=== PATIENT | male | born 1995 | race Caucasian/White ===

== ENCOUNTER 2016-05-01 09:06 | Emergency (ER) | payer MEDICAID ==
[2016-05-01] MEDS ORDERED: LIDOCAINE 1% INJ-PF (10 MG/ML) 30 ML SDV INFIL ONE (10:04)
[2016-05-01] MEDS ORDERED: AZITHROMYCIN 1 GM SUSP PACKET PO ONE (10:04)
[2016-05-01] MEDS ORDERED: CEFTRIAXONE INJ 250 MG VIAL IM ONE (10:04)
--- NOTE | 2016-05-01 10:07 | ER Document Report ---
ED GI/ - General Chief Complaint: STD Exposure Stated Complaint: STD EXPOSURE, TOE PAIN Notes: The patient is a 21-year-old male who presents after a exposure to chlamydia. His partner told him to come to the ER to be treated. He was using condoms. He is also having some discharge out of his right big toe. He is using Neosporin and soaking without much relief. Denies penile discharge, testicular pain, rash, lesions, fevers, nausea, vomiting or difficulty walking. TRAVEL OUTSIDE OF THE [place] IN LAST 30 DAYS: No - Related Data Allergies/Adverse Reactions: No Known Allergies Allergy (Unverified 05/01/16 09:13) Past Medical History - General Information source: Patient - Social History Smoking Status: Never Smoker Chew tobacco use (# tins/day): No Frequency of alcohol use: None Drug Abuse: None Family History: Reviewed & Not Pertinent Patient has suicidal ideation: No Patient has homicidal ideation: No Renal/ Medical History: Denies: Hx Peritoneal Dialysis Review of Systems - Review of Systems Notes: REVIEW OF SYSTEMS: CONSTITUTIONAL: -fevers, -chills EENT: -eye pain, -difficulty swallowing, -nasal congestion CARDIOVASCULAR:-chest pain, -syncope. RESPIRATORY: -cough, -SOB GASTROINTESTINAL: -abdominal pain, - nausea, -vomiting, -diarrhea GENITOURINARY: -dysuria, -hematuria MUSCULOSKELETAL: -back pain, -neck pain SKIN: +right big toenail drainage, -rash or skin lesions. HEMATOLOGIC: -easy bruising or bleeding. LYMPHATIC: -swollen, enlarged glands. NEUROLOGICAL: -altered mental status or loss of consciousness, -headache, - neurologic symptoms PSYCHIATRIC: -anxiety, -depression. ALL OTHER SYSTEMS REVIEWED AND NEGATIVE. Physical Exam - Vital signs Vitals: Temp 97.8, HR 68, BP 152/72, RR 14, 99% on RA - Notes Notes: PHYSICAL EXAMINATION: GENERAL: Well-appearing, well-nourished and in no acute distress. HEAD: Atraumatic, normocephalic. EYES: Pupils equal round and reactive to light, extraocular movements intact, sclera anicteric, conjunctiva are normal. ENT: nares patent, oropharynx clear without exudates. Moist mucous membranes. NECK: Normal range of motion, supple without lymphadenopathy LUNGS: Breath sounds clear to auscultation bilaterally and equal. No wheezes rales or rhonchi. HEART: Regular rate and rhythm without murmurs ABDOMEN: Soft, nontender, normoactive bowel sounds. No guarding, no rebound. No masses appreciated. : Normal testicles and penis. No drainage. EXTREMITIES: Right big toe with small amount of drainage from nail. Normal range of motion, no pitting or edema. No cyanosis. NEUROLOGICAL: Cranial nerves grossly intact. Normal speech, normal gait. Normal sensory, motor, and reflex exams. PSYCH: Normal mood, normal affect. SKIN: Warm, Dry, normal turgor, no rashes or lesions noted. Course - Re-evaluation Re-evalutation: Will treat patient for gonorrhea and chlamydia after sending urine due to exposure. Instructed him to always use condoms. Also instructed patient to add on a antifungal for his toenails. Told him to follow-up with his primary care physician to have his blood pressure rechecked. Discharge - Discharge Clinical Impression: Exposure to STD, Toenail fungus Condition: Good Disposition: HOME, SELF-CARE Additional Instructions: You were treated today for gonorrhea and chlamydia. Always wear protection. Skin Fungus You have a fungal infection of the toes. This is sometimes called "ringworm" when it forms a ring. It's called "jock itch" when it occurs in the groin area. The infection results from exposure to another person or an animal carrying the fungus. The fungus prefers areas which are moist and warm. The infection is usually treated with antifungal cream. This is applied two or three times daily. Healing may take two or three weeks. Occasionally, oral medication is necessary, for example, when the infection involves the scalp or nails. Fingernail or toenail infections are very difficult to eradicate, often requiring many weeks of treatment. Return for re-examination if your symptoms change significantly -- for example, if you develop fever or chills, red streaks, increasing tenderness, swelling, or blisters at the infection site.
[2016-05-01 10:31] VITALS: BP 121/68
[2016-05-01 11:40] LABS: CHLAM PCR NOT DETECTED (NOT DETECT)
== END 2016-05-01 10:25 | disposition home or self-care (01) ==
LOC: ER 09:06
DX: Z20.2 Contact with and (suspected) exposure to infections with a predominantly sexual mode of transmission (principal); B35.1 Tinea unguium
CPT/HCPCS: 99283; 96372; 87491; 87591; J3490; Q0144; J0696

== ENCOUNTER 2017-01-05 11:38 | Emergency (ER) | payer BC, MEDICAID ==
[2017-01-05] MEDS ORDERED: PREDNISONE 20 MG TABLET PO ONE (12:32)
--- NOTE | 2017-01-05 12:34 | ER Document Report ---
HPI - HPI Patient complains to provider of: Skin rash Onset: Last week Onset/Duration: Intermittent, Gone Quality of pain: No pain Pain Level: 0 Context: Patient presents complaining of intermittent skin rash off and on for the past week. Patient states that he has had symptoms almost daily but that they only last for about 15 minutes. Patient states that symptoms often start after exposure to cold temperatures or water. Patient denies any new foods, medications or detergents. Patient denies any respiratory symptoms, facial swelling or difficulty breathing. Associated Symptoms: Other - Skin rash Exacerbated by: Denies Relieved by: Denies Similar symptoms previously: No Recently seen / treated by doctor: No - ROS ROS below otherwise negative: Yes Systems Reviewed and Negative: Yes All other systems reviewed and negative - CONSTITUTIONAL Constitutional: DENIES: Fever, Chills - EENT EENT: DENIES: Sore Throat - CARDIOVASCULAR Cardiovascular: DENIES: Chest pain - RESPIRATORY Respiratory: DENIES: Trouble Breathing, Coughing - GASTROINTESTINAL Gastrointestinal: DENIES: Nausea, Patient vomiting - DERM Skin Color: Normal Skin Problems: Rash Past Medical History - General Information source: Patient - Social History Smoking Status: Never Smoker Frequency of alcohol use: None Drug Abuse: None 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 IN LAST 30 DAYS: No - HEENT HEENT: Atraumatic, Normocephalic - NECK Neck: Normal Inspection, Supple. negative: Lymphadenopathy-Left, Lymphadenopathy-Right - RESPIRATORY Respiratory: Breath Sounds Normal, No Respiratory Distress, Chest Non-Tender O2 Sat by Pulse Oximetry: 97 - CARDIOVASCULAR Cardiovascular: Regular Rate, Regular Rhythm, No Murmur - BACK Back: Normal Inspection - MUSCULOSKELETAL/EXTREMETIES Musculoskeletal/Extremeties: KRISTIN CALLE - NEURO Level of Consciousness: Awake, Alert, Appropriate Motor/Sensory: No Motor Deficit - DERM Integumentary: Warm, Dry, Rash - Erythematous crusted lesion in the bilateral ankles consistent with patient's reported history of ant bites Course - Re-evaluation Re-evalutation: 01/05/17 12:42 The patient has been informed that they may have pre-hypertension or hypertension based on a blood pressure reading in the emergency department. I recommend that patient call the primary care provider listed on their discharge instructions or a physician of their choice by this week to arrange follow-up for further evaluation of possible pre-hypertension or hypertension. - Vital Signs Vital signs: Temp Pulse Resp BP Pulse Ox 98.6 F 63 18 155/76 H 97 01/05/17 11:44 01/05/17 11:44 01/05/17 11:44 01/05/17 11:44 01/05/17 11:44 Discharge - Discharge Clinical Impression: Elevated blood pressure reading, Urticaria Condition: Stable Disposition: HOME, SELF-CARE Instructions: Acute Urticaria ([facility]), Use of Diphenhydramine, Steroid Medication Additional Instructions: Return immediately for any new or worsening symptoms Followup with your primary care provider, call tomorrow to make a followup appointment Follow-up with an upholstery technician for any continued problems Prescriptions: Famotidine [Pepcid 20 mg Tablet] 20 mg PO BID #12 tablet Prednisone [Deltasone 20 mg Tablet] 3 tab PO DAILY 4 Days tablet Forms: Elevated Blood Pressure Referrals: [facility] [Provider Group] - Follow up as needed
[2017-01-05 12:58] VITALS: BP 148/77
== END 2017-01-05 12:50 | disposition home or self-care (01) ==
LOC: ER 11:38
DX: L50.9 Urticaria, unspecified (principal); R03.0 Elevated blood-pressure reading, without diagnosis of hypertension
CPT/HCPCS: 99283; J7512

== ENCOUNTER 2017-01-26 12:44 | Emergency (ER) | payer BC ==
[2017-01-26 12:58] VITALS: BP 146/71
--- NOTE | 2017-01-26 13:39 | ER Document Report ---
HPI - HPI Patient complains to provider of: facial rash Onset: Other - few days Onset/Duration: Gradual Pain Level: 0 Context: 22 yo male with linear left forehead, right infereior orbital pink tiny vesicular rash. 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 Associated Symptoms: None Exacerbated by: Denies Relieved by: Denies - ROS ROS below otherwise negative: Yes Systems Reviewed and Negative: Yes All other systems reviewed and negative - DERM Skin Color: Normal Past Medical History - General Information source: Patient - Social History Smoking Status: Never Smoker Chew tobacco use (# tins/day): No Frequency of alcohol use: None Drug Abuse: None Family History: Reviewed & Not Pertinent Patient has suicidal ideation: No Patient has homicidal ideation: No - Medical History Medical History: Negative Renal/ Medical History: Denies: Hx Peritoneal Dialysis Vertical Provider Document - CONSTITUTIONAL Agree With Documented VS: Yes Exam Limitations: No Limitations General Appearance: No Apparent Distress - INFECTION CONTROL TRAVEL OUTSIDE OF THE [place] IN LAST 30 DAYS: No - HEENT HEENT: Normocephalic - NECK Neck: Supple - RESPIRATORY O2 Sat by Pulse Oximetry: 99 - NEURO Level of Consciousness: Awake, Alert - DERM Integumentary: Rash - typical fine pink linear vesicular rash left forehead, left eyebrow, right inferior orbit rash Course - Vital Signs Vital signs: Temp Pulse Resp BP Pulse Ox 98.5 F 67 14 146/71 H 99 01/26/17 12:57 01/26/17 12:57 01/26/17 12:57 01/26/17 12:57 01/26/17 12:57 Discharge - Discharge Clinical Impression: Contact dermatitis Qualifiers: Contact dermatitis type: unspecified Contact dermatitis trigger: unspecified trigger Qualified Code(s): L25.9 - Unspecified contact dermatitis, unspecified cause Condition: Good Disposition: HOME, SELF-CARE Instructions: Contact Dermatitis ([facility]), Topical Steroid Cream or Ointment ([facility]) Additional Instructions: topical steroid cream three times per day, over the counter hydrocortisone did not get the hydrocortisone cream in your eye Return to the emergency room any concerns Referral to the top precipitator operator if needed Please complete the patient satisfaction survey if you get one, and return it.. If you do not receive a survey, then you can go to the [facility] website, [email or web address] and place your comments about your very good care. Thank you very much. It was a pleasure being your medical provider today. Referrals: TAMMI PEOPLES, DO [ACTIVE STAFF] - Follow up as needed
== END 2017-01-26 13:40 | disposition home or self-care (01) ==
LOC: ER 12:44
DX: L25.9 Unspecified contact dermatitis, unspecified cause (principal)
CPT/HCPCS: 99282

== ENCOUNTER 2017-02-01 08:30 | Emergency (ER) | payer BC ==
[2017-02-01 08:37] VITALS: BP 146/89
[2017-02-01] MEDS ORDERED: TETRACAINE HCL 0.5% OPH SOLN 2 ML OD ONE (08:46)
[2017-02-01] MEDS ORDERED: POLYMYXIN B SULFATE/TMP OPH SOLN 10 ML OD ONE (09:12)
--- NOTE | 2017-02-01 09:16 | ER Document Report ---
ED General - General Chief Complaint: Eye Problem Stated Complaint: RIGHT EYE PROBLEM Time Seen by Provider: 02/01/17 08:46 TRAVEL OUTSIDE OF THE [place] 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 Patient states no swelling redness to the right eye. States woke up this morning with purulent discharge from the eye. Denies any change in vision. Patient resting comfortably upon my evaluation denies any contact use. Denies fevers chills nausea vomiting diarrhea. - Related Data Allergies/Adverse Reactions: No Known Allergies Allergy (Verified 02/01/17 08:34) Past Medical History - Social History Smoking Status: Never Smoker Chew tobacco use (# tins/day): No Frequency of alcohol use: None Drug Abuse: None Family History: Reviewed & Not Pertinent Patient has suicidal ideation: No Patient has homicidal ideation: No Renal/ Medical History: Denies: Hx Peritoneal Dialysis Review of Systems - Review of Systems Constitutional: No symptoms reported EENT: Eye discharge Cardiovascular: No symptoms reported Respiratory: No symptoms reported Gastrointestinal: No symptoms reported Genitourinary: No symptoms reported Male Genitourinary: No symptoms reported Musculoskeletal: No symptoms reported Skin: No symptoms reported Hematologic/Lymphatic: No symptoms reported Neurological/Psychological: No symptoms reported -: Yes All other systems reviewed and negative Physical Exam - Vital signs Vitals: Temp Pulse Resp BP Pulse Ox 98.3 F 57 L 20 146/89 H 99 02/01/17 08:36 02/01/17 08:36 02/01/17 08:36 02/01/17 08:36 02/01/17 08:36 Interpretation: Normal - General General appearance: Appears well, Alert - HEENT Head: Normocephalic, Atraumatic, Other - Slight swelling edema of the right orbit Eyes: Normal Conjunctiva: Injected, Purulent discharge Cornea: Normal. No: Corneal abrasion, Corneal ulcer, Dendrite, Embedded foreign body, Flourescein stain uptake, Opacified, Superficial foreign body Extraocular movements intact: Yes Eyelashes: Normal Pupils: PERRL Visual acuity- Right eye: 20/30 Visual acuity- Left eye: 20/30 Visual acuity- Both eyes: 20/25 Corrective lenses worn: No Anterior chamber: Normal - Respiratory Respiratory status: No respiratory distress Chest status: Nontender Breath sounds: Normal Chest palpation: Normal - Cardiovascular Rhythm: Regular Heart sounds: Normal auscultation Murmur: No - Abdominal Inspection: Normal Distension: No distension Bowel sounds: Normal Tenderness: Nontender Organomegaly: No organomegaly - Back Back: Normal, Nontender - Extremities General upper extremity: Normal inspection, Nontender, Normal color, Normal ROM , Normal temperature General lower extremity: Normal inspection, Nontender, Normal color, Normal ROM , Normal temperature, Normal weight bearing. No: Karie's sign - Neurological Neuro grossly intact: Yes Cognition: Normal Orientation: AAOx4 Vishal Coma Scale Eye Opening: Spontaneous Vishal Coma Scale Verbal: Oriented [place] Coma Scale Motor: Obeys Commands [place] Coma Scale Total: 15 Speech: Normal Motor strength normal: LUE, RUE, LLE, RLE Sensory: Normal - Psychological Associated symptoms: Normal affect, Normal mood - Skin Skin Temperature: Warm Skin Moisture: Dry Skin Color: Normal Course - Re-evaluation Re-evalutation: 02/01/17 13:48 Patient with conjunctivitis no signs of foreign body on fluorescein examination. Patient more likely has an underlying allergic component concern about possible infection will cover with Polytrim patient was encouraged to take antihistamine also Naphcon-A to help out with redness occurs not to scratch or rub his eye. - Vital Signs Vital signs: Temp Pulse Resp BP Pulse Ox 98.3 F 57 L 20 146/89 H 99 02/01/17 08:36 02/01/17 08:36 02/01/17 08:36 02/01/17 08:36 02/01/17 08:36 Discharge - Discharge Clinical Impression: Conjunctivitis Qualifiers: Conjunctivitis type: unspecified Laterality: right Qualified Code(s): H10.9 - Unspecified conjunctivitis Condition: Good Disposition: HOME, SELF-CARE Instructions: Conjunctivitis, Allergic, Conjunctivitis ([facility]), Eyedrop Use ([facility]) Additional Instructions: Please use eyedrops that we gave you here in the ER 2 drops in the right eye 4 times a day for the next 10 days. Also recommend taking [id number] Zyrtec also to help soothe your he can use Naphcon-A drops that are prescribed these are also available [id number]. Examination does not show any signs of foreign bodies in your eye. I believe the swelling and redness is due to possible allergic component along with an infectious component. Medication prescribed will aid with her symptoms. Prescriptions: Cetirizine HCl [Zyrtec] 10 mg PO DAILY #14 tablet Naphazoline HCl/Pheniramine [Naphcon-A Eye Drops] 4 drop OD TID #1 bottle
== END 2017-02-01 09:29 | disposition home or self-care (01) ==
LOC: ER 08:30
DX: H10.9 Unspecified conjunctivitis (principal); H57.11 Ocular pain, right eye
CPT/HCPCS: 99283; J3490